=== PATIENT | male | born 1990 | race Caucasian/White ===

== ENCOUNTER 2023-08-13 06:37 | Inpatient (IN) | payer BC, MEDICAID ==
[~2023-08-13] VITALS: Ht 205.7 cm; Wt 71.7 kg
[~2023-08-13 06:37] MED LIST: CEPH-548 PO; SERT50TA PO; ZOLP10TA2 PO
[2023-08-13 06:47] VITALS: BP_SYST 149; PULSE 82; RESP 16; TEMP 97.7; O2SAT 99
[2023-08-13 07:13] LABS: BASOPHILS # (AUTO) 0.1 K/uL (0.0-0.2); BASOPHILS % (AUTO) 1.2 % (0.0-2.0); EOSINOPHILS # (AUTO) 0.5 K/uL (0.0-0.4); EOSINOPHILS % (AUTO) 7.3 % (0.0-4.0); HEMATOCRIT 29.3 % (36-54); HEMOGLOBIN 9.5 g/dL (14.0-18.0); LYMPHOCYTES # (AUTO) 0.9 K/uL (1.0-5.5); LYMPHOCYTES % (AUTO) 12.3 % (20.5-51.5); MEAN CORPUSCULAR HEMOGLOBIN 30 pg (27-31); MEAN CORPUSCULAR HGB CONC 33 % (32-36); MEAN CORPUSCULAR VOLUME 93 fL (79.0-98.0); MONOCYTES # (AUTO) 0.5 K/uL (0.0-1.0); NEUTROPHILS # (AUTO) 5.2 K/uL (1.8-7.7); NEUTROPHILS % (AUTO) 72.2 % (40.0-70.0); RED BLOOD CELL COUNT(AUTO) 3.14 MIL/uL (4.2-6.2); RED CELL DISTRIBUTION WIDTH 19.2 % (9.0-15.0); WHITE BLOOD COUNT (AUTO) 7.2 K/uL (4.8-10.8)
[2023-08-13 07:20] LABS: INR 2.1 (0.80-1.20); PROTHROMBIN TIME 20.6 SECS (9.5-12.5)
[2023-08-13 07:25] LABS: ANION GAP 9 (5-15); CALCIUM 9.5 mg/dL (8.4-11.0); CARBON DIOXIDE 34 mmol/L (23-29); CHLORIDE 98 mmol/L (98-107); GFR AFRICAN AMERICAN 10 mL/min (>90); GLUCOSE 86 mg/dL (74-106); SODIUM SERUM 141 mmol/L (136-145); UREA NITROGEN, BLOOD 46 mg/dL (8-21)
[2023-08-13 07:27] LABS: POTASSIUM 5.9 mmol/L (3.5-5.1)
[2023-08-13 07:28] VITALS: BP_SYST 149; PULSE 78; RESP 22; TEMP 97.9; O2SAT 99
[2023-08-13 07:28] LABS: GFR NON AFRICAN-AMERICAN 8 mL/min (>90)
[2023-08-13 08:02] LABS: PLATELET COUNT (AUTO) 93 K/uL (130-430)
[2023-08-13] MEDS: INSULIN REGULAR, HUMAN 10 UNITS/0.1 ML, 3 ML VIAL IVP ONE (08:08)
[2023-08-13] MEDS: DEXTROSE 50% JECT 50 ML DISP.SYRIN IVP ONE (08:11)
[2023-08-13] MEDS ORDERED: WARF1TAB84 PO (11:23)
[2023-08-13] MEDS ORDERED: HYDR-2923 PO (11:24)
[2023-08-13 11:25] VITALS: BP_SYST 157; PULSE 78; RESP 18; TEMP 98.7
[2023-08-13] MEDS ORDERED: AMIO200T6 PO (11:26)
[2023-08-13] MEDS ORDERED: METO-442 PO (11:26)
[2023-08-13] MEDS ORDERED: LORA-259 PO (11:27)
[2023-08-13 12:00] VITALS: BP_SYST 157; PULSE 78; RESP 18; TEMP 98.7; O2SAT 97
[2023-08-13 13:47] VITALS: O2SAT 97
[2023-08-13] MEDS ORDERED: HYDROcodone/ACETAMIN 5-325 MG TAB (NORCO/ VICODIN) PO PRN ×2 (14:00→15:30)
[2023-08-13] MEDS ORDERED: ACETAMINOPHEN 325 MG TABLET PO PRN ×3 (14:00→15:45)
[2023-08-13] MEDS ORDERED: NALOXONE HCL 0.4 MG/ML AMP (NARCAN) IVP PRN ×3 (14:00→15:30)
[2023-08-13] MEDS: HYDROcodone/ACETAMIN 10-325 MG TAB PO PRN ×2 (14:13→18:22)
[2023-08-13] MEDS: HYDROmorphone 2 MG/ML VIAL ONE (14:59)
[2023-08-13] MEDS: HYDROmorphone 2 MG/ML VIAL IVP ONE ×2 (15:04→20:50)
[2023-08-13] MEDS: WARFARIN SODIUM 1 MG TABLET PO SCH (18:00)
[2023-08-13] MEDS: hydrALAZINE HCL 25 MG TABLET PO ONE (18:27)
[2023-08-13 20:00] VITALS: BP_SYST 150; PULSE 92; RESP 20; TEMP 98; O2SAT 99
[2023-08-13] MEDS: hydrALAZINE HCL 10 MG TABLET PO SCH (20:51)
[2023-08-13] MEDS: METOPROLOL TARTRATE 50 MG TABLET PO SCH (20:51)
[2023-08-13] MEDS: LORazepam 1 MG TABLET PO SCH (20:52)
[2023-08-13] MEDS: hydrALAZINE HCL 25 MG TABLET PO SCH (20:52)
[2023-08-13] MEDS: NORMAL SALINE 5 ML DISP.SYRIN IVF SCH (20:53)
[2023-08-13] MEDS ORDERED: ZOLPIDEM TARTRATE 5 MG TABLET PO SCH (21:00)
[2023-08-13] MEDS ORDERED: cephALEXin 500 MG CAPSULE PO SCH (21:00)
[2023-08-14] MEDS: LORazepam 2 MG/ML VIAL IVP PRN (00:20)
[2023-08-14 06:18] LABS: BASOPHILS # (AUTO) 0.1 K/uL (0.0-0.2); BASOPHILS % (AUTO) 1.8 % (0.0-2.0); EOSINOPHILS # (AUTO) 0.8 K/uL (0.0-0.4); EOSINOPHILS % (AUTO) 10.9 % (0.0-4.0); HEMATOCRIT 30.9 % (36-54); LYMPHOCYTES # (AUTO) 1.2 K/uL (1.0-5.5); LYMPHOCYTES % (AUTO) 16.6 % (20.5-51.5); MEAN CORPUSCULAR HEMOGLOBIN 30 pg (27-31); MEAN CORPUSCULAR HGB CONC 32 % (32-36); MEAN CORPUSCULAR VOLUME 94 fL (79.0-98.0); MONOCYTES # (AUTO) 0.4 K/uL (0.0-1.0); MONOCYTES % (AUTO) 5.7 % (1.7-9.3); NEUTROPHILS # (AUTO) 4.8 K/uL (1.8-7.7); PLATELET COUNT (AUTO) 72 K/uL (130-430); RED CELL DISTRIBUTION WIDTH 18.9 % (9.0-15.0); WHITE BLOOD COUNT (AUTO) 7.4 K/uL (4.8-10.8)
[2023-08-14 06:24] LABS: INR 1.7 (0.80-1.20); PROTHROMBIN TIME 17.4 SECS (9.5-12.5)
[2023-08-14 06:43] LABS: CREATININE 7.22 mg/dL (0.55-1.30); PHOSPHORUS 6.2 mg/dL (2.7-4.5); POTASSIUM 5.2 mmol/L (3.5-5.1)
[2023-08-14 07:00] VITALS: BP_SYST 145; PULSE 82; RESP 16; TEMP 97; O2SAT 98
[2023-08-14 08:00] VITALS: BP_SYST 145; PULSE 82; RESP 16; TEMP 97.7; O2SAT 98
[2023-08-14] MEDS: AMIODARONE HCL 200 MG TABLET PO SCH (09:06)
[2023-08-14] MEDS: SERTRALINE HCL 50 MG TABLET PO SCH (09:06)
[2023-08-14 11:39] VITALS: BP_SYST 146; PULSE 74; RESP 18; TEMP 97.8; O2SAT 98
[2023-08-14] MEDS: ONDANSETRON HCL 4 MG/2 ML VIAL IVP PRN (11:59)
[2023-08-14] MEDS ORDERED: MORPHINE 2 MG/ML INJ. SYRINGE IVP PRN (12:15)
[2023-08-14] MEDS ORDERED: NALOXONE HCL 0.4 MG/ML AMP (NARCAN) IVP PRN ×2 (12:15→17:15)
[2023-08-14 13:14] VITALS: BP_SYST 152; PULSE 76; RESP 16; TEMP 98.2; O2SAT 98
[2023-08-14] MEDS: SODIUM ZIRCONIUM CYCLOSILICATE 10 GM POWD.PACK PO ONE (14:02)
[2023-08-14 16:47] VITALS: BP_SYST 139; PULSE 76; RESP 17; TEMP 98.3; O2SAT 97
[2023-08-14] MEDS: HYDROmorphone 1 MG/ML INJ. CARTRIDGE IVP ONE (17:42)
[2023-08-14 20:00] VITALS: BP_SYST 145; RESP 20; TEMP 98; O2SAT 98
[2023-08-15] VITALS: BP_SYST 137; PULSE 82; RESP 18; TEMP 97.7; O2SAT 99
[2023-08-15 04:19] LABS: ALBUMIN 3.1 g/dL (3.4-4.8); PHOSPHORUS 7.5 mg/dL (2.7-4.5); TOTAL BILIRUBIN 0.7 mg/dL (0.0-1.0)
[2023-08-15 04:44] LABS: BASOPHILS # (AUTO) 0.1 K/uL (0.0-0.2); BASOPHILS % (AUTO) 2.2 % (0.0-2.0); EOSINOPHILS # (AUTO) 0.7 K/uL (0.0-0.4); EOSINOPHILS % (AUTO) 10.9 % (0.0-4.0); HEMATOCRIT 30.8 % (36-54); HEMOGLOBIN 10.2 g/dL (14.0-18.0); LYMPHOCYTES # (AUTO) 1.2 K/uL (1.0-5.5); LYMPHOCYTES % (AUTO) 18.9 % (20.5-51.5); MEAN CORPUSCULAR HEMOGLOBIN 30 pg (27-31); MEAN CORPUSCULAR HGB CONC 33 % (32-36); MEAN CORPUSCULAR VOLUME 91 fL (79.0-98.0); MONOCYTES # (AUTO) 0.5 K/uL (0.0-1.0); MONOCYTES % (AUTO) 8.3 % (1.7-9.3); NEUTROPHILS # (AUTO) 3.6 K/uL (1.8-7.7); NEUTROPHILS % (AUTO) 59.7 % (40.0-70.0); PLATELET COUNT (AUTO) 78 K/uL (130-430); RED BLOOD CELL COUNT(AUTO) 3.37 MIL/uL (4.2-6.2); RED CELL DISTRIBUTION WIDTH 18.5 % (9.0-15.0); WHITE BLOOD COUNT (AUTO) 6.1 K/uL (4.8-10.8)
[2023-08-15 04:47] LABS: CREATININE 9.33 mg/dL (0.55-1.30)
[2023-08-15 08:00] VITALS: BP_SYST 150; PULSE 72; RESP 16; TEMP 98; O2SAT 97
[2023-08-15 09:00] VITALS: O2SAT 97
[2023-08-15] MEDS: HYDROmorphone 1 MG/ML INJ. CARTRIDGE IVP ONE (10:43)
[2023-08-15 12:43] VITALS: BP_SYST 153; PULSE 69; RESP 18; TEMP 97.4; O2SAT 97
[2023-08-15 18:36] VITALS: BP_SYST 141; PULSE 73; RESP 17; TEMP 97.9
[2023-08-15 20:00] VITALS: BP_SYST 149; PULSE 79; RESP 20; TEMP 98.5; O2SAT 95; O2SAT 96
[2023-08-18] MEDS ORDERED: AMIO200T6 PO (06:21)
== END 2023-08-15 23:23 | disposition left against medical advice (07) | DRG 194 ==
LOC: SED 06:37 → STU 07:52
PROVIDERS: ADMIT Preventive Medicine Preventive Medicine/Occupational Environmental Medicine; ATTEND Preventive Medicine Preventive Medicine/Occupational Environmental Medicine
PROC: 5A1D70Z Performance of Urinary Filtration, Intermittent, Less than 6 Hours Per Day (ICD-10-PCS; principal; 2023-08-13)
PROC: 5A1D70Z Performance of Urinary Filtration, Intermittent, Less than 6 Hours Per Day (ICD-10-PCS; 2023-08-15)
DX: I13.2 Hypertensive heart and chronic kidney disease with heart failure and with stage 5 chronic kidney disease, or end stage renal disease (principal); D69.6 Thrombocytopenia, unspecified; N17.9 Acute kidney failure, unspecified; N18.6 End stage renal disease; E83.41 Hypermagnesemia; D63.1 Anemia in chronic kidney disease; E83.39 Other disorders of phosphorus metabolism; Z79.01 Long term (current) use of anticoagulants; I50.43 Acute on chronic combined systolic (congestive) and diastolic (congestive) heart failure; E87.5 Hyperkalemia; Z99.2 Dependence on renal dialysis; Z79.899 Other long term (current) drug therapy; I25.10 Atherosclerotic heart disease of native coronary artery without angina pectoris
CPT/HCPCS: 36415; 71045; 80048; 80053; 82948; 83735; 83880; 84100; 84484; 85025; 85610; 85730; 90935; 90937; 93005; 93306; 93970; 96374; 97110-GP; 97530-GP; 99291; G0378; J1170; J2060; J2405

== ENCOUNTER 2023-08-17 13:52 | Emergency (ER) | payer MEDICAID ==
[~2023-08-17] VITALS: Ht 175.3 cm; Wt 72.6 kg
[~2023-08-17 13:52] MED LIST changes: +AMIO200T6 PO; +HYDR-2923 PO; +LORA-259 PO; +METO-442 PO; +WARF1TAB84 PO
[2023-08-17 13:57] VITALS: BP_SYST 134; PULSE 110; RESP 20; TEMP 98.6; O2SAT 99
[2023-08-17 14:36] LABS: BASOPHILS # (AUTO) 0.1 K/uL (0.0-0.2); BASOPHILS % (AUTO) 1.3 % (0.0-2.0); EOSINOPHILS # (AUTO) 0.4 K/uL (0.0-0.4); EOSINOPHILS % (AUTO) 5.9 % (0.0-4.0); HEMATOCRIT 29.1 % (36-54); HEMOGLOBIN 9.6 g/dL (14.0-18.0); LYMPHOCYTES # (AUTO) 0.5 K/uL (1.0-5.5); LYMPHOCYTES % (AUTO) 6.4 % (20.5-51.5); MEAN CORPUSCULAR HEMOGLOBIN 30 pg (27-31); MEAN CORPUSCULAR HGB CONC 33 % (32-36); MEAN CORPUSCULAR VOLUME 92 fL (79.0-98.0); MONOCYTES # (AUTO) 0.3 K/uL (0.0-1.0); MONOCYTES % (AUTO) 4.8 % (1.7-9.3); NEUTROPHILS # (AUTO) 5.8 K/uL (1.8-7.7); NEUTROPHILS % (AUTO) 81.6 % (40.0-70.0); PLATELET COUNT (AUTO) 122 K/uL (130-430); RED BLOOD CELL COUNT(AUTO) 3.17 MIL/uL (4.2-6.2); RED CELL DISTRIBUTION WIDTH 18.8 % (9.0-15.0); WHITE BLOOD COUNT (AUTO) 7.1 K/uL (4.8-10.8)
[2023-08-17] MEDS: HYDROcodone/ACETAMIN 10-325 MG TAB PO ONE (15:00)
[2023-08-17 15:06] LABS: INR 1.6 (0.80-1.20); PROTHROMBIN TIME 16.4 SECS (9.5-12.5)
[2023-08-17 16:01] LABS: ANION GAP 17 (5-15); CALCIUM 8.7 mg/dL (8.4-11.0); CARBON DIOXIDE 26 mmol/L (23-29); CHLORIDE 96 mmol/L (98-107); GFR AFRICAN AMERICAN 7 mL/min (>90); GLUCOSE 99 mg/dL (74-106); POTASSIUM 5.5 mmol/L (3.5-5.1); SODIUM SERUM 139 mmol/L (136-145); UREA NITROGEN, BLOOD 62 mg/dL (8-21)
[2023-08-17 16:07] LABS: CREATININE 11.43 mg/dL (0.55-1.30); GFR NON AFRICAN-AMERICAN 6 mL/min (>90)
[2023-08-17] MEDS ORDERED: ACET325T53 PO (19:42)
[2023-08-17] MEDS: MORPHINE 4 MG INJ. 4 MG/ML VIAL IVP ONE (19:52)
[2023-08-17 22:46] VITALS: BP_SYST 158; PULSE 82; RESP 18; TEMP 97.3; O2SAT 96
[2023-08-18] MEDS ORDERED: AMIO200T6 PO (06:21)
== END 2023-08-17 22:42 | disposition admitted as inpatient to this hospital (09) ==
LOC: SED 13:52
DX: M79.604 Pain in right leg (principal); R07.9 Chest pain, unspecified; R06.02 Shortness of breath; E87.5 Hyperkalemia; I13.2 Hypertensive heart and chronic kidney disease with heart failure and with stage 5 chronic kidney disease, or end stage renal disease; N18.6 End stage renal disease; I50.9 Heart failure, unspecified; F41.9 Anxiety disorder, unspecified; Z98.890 Other specified postprocedural states; Z88.5 Allergy status to narcotic agent; Z88.8 Allergy status to other drugs, medicaments and biological substances; Z79.899 Other long term (current) drug therapy
CPT/HCPCS: 99285; 96374; 93971; 71045; 80048; 83880; 85025; 85379; 85610; 85730; 87081; 84484; 36415; 93005; J2270